=== PATIENT | female | born 1995 | race African-American/Black ===

== ENCOUNTER 2017-03-29 16:34 | Emergency (ER) | payer MEDICAID ==
[~2017-03-29] VITALS: Ht 175.3 cm; Wt 67.0 kg
[2017-03-29 18:25] VITALS: BP 106/61
== END 2017-03-29 21:00 | disposition left against medical advice (07) ==
LOC: ER 20:56
DX: Z11.3 Encounter for screening for infections with a predominantly sexual mode of transmission (principal); Z53.21 Procedure and treatment not carried out due to patient leaving prior to being seen by health care provider

== ENCOUNTER 2017-11-05 10:12 | Emergency (ER) | payer MEDICAID ==
[~2017-11-05] VITALS: Ht 177.8 cm; Wt 66.0 kg
[2017-11-05 10:26] VITALS: BP 95/59
== END 2017-11-05 17:28 | disposition left against medical advice (07) ==
LOC: ER 10:12
DX: R10.9 Unspecified abdominal pain (principal); Z53.21 Procedure and treatment not carried out due to patient leaving prior to being seen by health care provider